=== PATIENT | female | born 1960 | race Caucasian/White ===

== ENCOUNTER 2021-06-12 08:00 | Outpatient (CLI) | payer OTHER ==
--- NOTE | 2021-06-12 16:59 | XRAY Report ---
PROCEDURE: Lumbar Spine 2 View INDICATIONS: ACUTE LOW BACK PAIN TECHNIQUE: 2 views of the lumbar spine were acquired. COMPARISON: None. FINDINGS: Bones: 5 [id number] vertebrae are present. Scoliosis centered at L1-L2. Exaggerated lumbar spin e lordosis. No vertebral body compression fractures. No suspicious bony lesions. Soft tissues: Overlying bowel gas pattern is normal. No suspicious soft tissue calcifications. Vasc ular calcifications. IMPRESSION: No compression fracture. Moderate degenerative change. Moderate scoliosis. Reviewed by: Kunal Roberts MD on 06/12/2021 3:58 PM DAMIAN Approved by: Kunal Roberts MD on 06/12/2021 3:58 PM DAMIAN Station ID: [id number]
== END 2021-06-12 23:59 | disposition home or self-care (01) ==
LOC: DI.S 08:00
PROVIDERS: ATTEND Nurse Practitioner
DX: M47.816 Spondylosis without myelopathy or radiculopathy, lumbar region (principal); M41.9 Scoliosis, unspecified

== ENCOUNTER 2021-06-25 16:43 | Emergency (ER) | payer OTHER ==
[2021-06-25] MEDS ORDERED: KETOROLAC 60 MG/2 ML VIAL IM STA (17:00)
--- NOTE | 2021-06-25 17:41 | ED Physician Documentation ---
History of Present Illness - Stated complaint Stated Complaint: HEADACHE,HEAR HEARTBEAT IN EAR - Chief complaint Chief Complaint: Neuro - History obtained from History obtained from: Patient - Additonal information Additional information: This is a 61 yo f w/ pmh of htn who presents w/ sensation of heartbeat in both ears. She also has a mild right frontal headache. She has had similar sx in the past related to sinus congestion or infections but she has no sinus congested this time. She has no fever, vision changes, change in speech, facial weakness, cp, dyspnea, abd pain, n/v/d, ataxia or weakness. She has no fever or chills. She does get occasional headaches but no history of migraines. Denies thunderclap headache or worst headache of life. States she does have a history of anxiety and "I get in my head about these things." She is on atenolol for previously elevated HR as well as BP control but hasn't seen her PCP in over a year. Review of Systems Constitutional: reports: Reviewed and negative Eyes: denies: Loss of vision, Decreased vision, Photophobia, Discharge, Irritation Ears: reports: Tinnitus/ringing. denies: Loss of hearing, Ear pain, Drainage/discharge, Foreign body Nose: reports: Reviewed and negative Throat: reports: Reviewed and negative Cardiac: reports: Reviewed and negative Respiratory: reports: Reviewed and negative GI: reports: Reviewed and negative : reports: Reviewed and negative Skin: reports: Reviewed and negative Musculoskeletal: reports: Reviewed and negative Neurologic: reports: Reviewed and negative Psychiatric: reports: Anxiety PD PAST MEDICAL HISTORY - Past Medical History Past Medical History: Yes Cardiovascular: Hypertension Psych: Anxiety - Present Medications Home Medications: Ambulatory Orders Medication Instructions Recorded Confirmed Omeprazole Magnesium 20 mg PO DAILY 06/25/21 06/25/21 atenoloL [Tenormin] 25 mg PO DAILY 06/25/21 06/25/21 - Allergies Allergies/Adverse Reactions: Allergies Allergy/AdvReac Type Severity Reaction Status Date / Time Sulfa (Sulfonamide Allergy Nausea Verified 06/25/21 16:46 Antibiotics) PD ED PE NORMAL - Vitals Vital signs reviewed: Yes - General General: Alert and oriented X 3, No acute distress, Well developed/nourished - HEENT HEENT: Atraumatic, PERRL, Moist mucous membranes, Pharynx benign - Neck Neck: Supple, no meningeal sign, No adenopathy, No JVD, No bruit - Cardiac Cardiac: RRR, No murmur, No gallop, No rub, Strong equal pulses (pulse is NOT bounding) - Respiratory Respiratory: No respiratory distress, Clear bilaterally - Abdomen Abdomen: Normal bowel sounds, Soft, Non tender, Non distended - Derm Derm: Normal color, Warm and dry, No rash - Extremities Extremities: No deformity, No tenderness to palpate, Normal ROM s pain, No edema, No calf tenderness / cord - Neuro Neuro: Alert and oriented X 3, 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 She had a normal neuro exam. There were no carotid bruits on exam. She had no chest pain, dyspnea, or anginal equivalent. I treated her headache w/ toradol after d/w pt and her tinnitus improved. I reviewed potential causes of pulsatile tinnitus and return precautions. I advised her to see her PCP within the next week to recheck blood pressure. She also has a BP cuff at home and will trend her home BP. If her sx worsen or are accompanied by vision changes, increased headache, chest pain, ataxia, or other new concerns, pt to return to the ER. Departure - Departure Disposition: Home, Self Care Clinical Impression: Hypertension Condition: Good Instructions: Hypertension Control, ED Cephalgia Unspecified Comments: As we discussed your symptoms are consistent with pulsatile tinnitus. There are no focal neuro changes which is reassuring. Your blood pressure is elevated, I think this is a combination of anxiety as well as likely hypertension. You are on atenolol which she should continue taking but may need an additional blood pressure agent. Please follow-up with your primary doctor within 1 to 2 weeks to recheck your blood pressure and trended at home on your home monitor. If it is persistently above 180 systolic then I would want you to be seen in the ER otherwise please see your primary care provider as soon as you can. If you develop a severe headache, vision changes, chest pain, trouble breathing, focal weakness or other new concerns please return to the ER. You can continue tylenol as needed. Discharge Date/Time: 06/25/21 17:48
[2021-06-25 17:48] VITALS: BP 176/87
== END 2021-06-25 17:48 | disposition home or self-care (01) ==
LOC: ED 16:43
DX: I10 Essential (primary) hypertension (principal); R51.9 Headache, unspecified; H93.A9 Pulsatile tinnitus, unspecified ear
CPT/HCPCS: 96372; 99283; 99284